=== PATIENT | male | born 1930 | race Caucasian/White ===

== ENCOUNTER 2019-11-25 11:30 | Emergency (ER) | payer OTHER ==
--- NOTE | 2019-11-25 11:43 | PDOC ---
History of Present Illness - General History Source: Patient, Family (Grandson Harlan present at bedside), Pt declined Payroll And Benefits Analyst (Requested grandson provide translation.) Exam Limitations: Language Barrier (Pt is Puerto Rican speaking only.) - History of Present Illness Initial Comments: HPI: 89 y/o male presenting to [place] ER accompanied by grandanita Claros from Dr. Velez's clinic. Pt is complaining of worsening chest pain versus epigastric pain for the past nine days. Associates fever for the past several days. Last used Tylenol this morning. Denies pain radiating to arms, neck, or back. Denies associated SOB, cough, or sneeze. The pt was evaluated at an several weeks ago and tested negative for COVID. However, his was diagnosed with COVID six weeks ago. Grandson reports the two were isolated from each other following her diagnosis. Denies N/V/D, abd pain, dysuria, rashes. Medical Hx: - HTN - BPH Review of Systems: 10 point review of systems completed. All systems negative except as noted above. Physical Examination: Vital signs and nursing notes reviewed. Constitutional- Elderly adult male in no acute distress or obvious discomfort. Found semi-fowlers on hospital bed. Head- Normocephalic. No obvious external signs of trauma. Eyes- Sclerae white. Neck- Supple, trachea is midline. No JVD. Cardiovascular / Chest- Regular rate and regular rhythm. Peripheral pulses- radial pulses full. No pretibial edema. Respiratory- Breathing unlabored. Speaking in multi-word responses without pausing. Equal chest rise and fall. Clear to auscultation bilaterally. No stridor, no wheezing, no rhonchi. Gastrointestinal- Pt endorses discomfort in epigastric region without rebound or guarding. Globally, abdomen is soft and nondistended. Midline abdominal wall hernia that spontaneously reduces. No pulsatile masses. No overlying skin lesions or obvious signs of trauma. Neuro- Alert and oriented. Moving all four extremities spontaneously. No facial asymmetry. Skin- Warm, dry, and intact. Psych- Speech was non-labored, non-pressured. MDM: 89 y/o male presenting with nine days of worsening epigastric vs substernal chest pain w/ fever. Afebrile. Vitals unremarkable for hypotension or tachycardia. Normoxic on room air while at rest. Physical exam as described above. D/D includes but not limited to ACS, bacteria PNA, COVID PNA/viral syndrome, acute gastritis, GERD. CXR remarkable for bilateral patchy infiltrates concerning for COVID-19 infection. 12-lead EKG Interpretation: Sinus rhythm with ventricular rate of 63 BPM. Normal [place] and normal intervals. Normal QRS duration. No significant ST segment elevation or depression. T wave inversions in aVL, V4, V5, and V6. No previous EKGs available for comparison. Lead II Cardiac Rhythm Strip- Sinus rhythm. Grandson requested the pt be discharged AMA, but does not want the pt to be made aware of his current clinical condition. Explained this was not possible. Grandson will discuss with his father. Ordered Pepcid, ASA, SL Nitro, and LR IVFB. Pt reports the pain has gotten a little bit better following the SL nitro. Reviewed lab work. Noted mildly elevated CK-MB with normal troponin. Given the inverted T waves, concerning for possible recent CA without acute infarction. Ordered three hour delta troponin and EKG. Also noted mild hyponatremia and HENRIETTA. Concern for dehydration. Will admit pt for chest pain, abnormal EKG findings, elevated CK-MB, and COVID findings on CXR. After >30 min discussion with pt, pts grandson, pts PCP Dr. Velez (via telephone). Pt has elected to leave this facility against medical advice and proceed directly to [facility] ED for further evaluation. Pt has a family member that works at [facility] as a RN. Todays findings as well as the risks of leaving the hospital were discussed via [employer]phone Payroll And Benefits Analyst Services with [place]ican grain unloader machine # [id number]. The pts grandson was present at bedside and was a 3-rd republican on the call via his own cell phone (number [phone]). Pt was found to be A/Ox4 and of sound mind with intact decision making capacity. He expressed understanding of the risks, and repeated his desire to leave the ED AMA. All questions were answered. ED RN Evelyne was present for the conversation. Pt left the department before delta labs or repeat EKG could be obtained. Pt was provided copies of todays results, including electronic copies of his chest xray. Dr. Velez was made aware of the pts decision. Pt left the department under the care of his grandson HarlanRenard Zendejas M.D., PGY2 Emergency Medicine Resident Please note this patient was evaluated during the COVID-19 crisis with the presidential Reyes Act Declaration and the [place] governor executive order number [id number]. He/she was evaluated and clinical decisions were made relative to healthcare system resources as well as clinical picture during a pandemic crisis situation. <Adryan Zendejas - Last Filed: 11/25/19 14:58> <Olimpia Curiel - Last Filed: 11/25/19 15:01> - General Chief Complaint: Chest Pain Stated Complaint: H/O FEVER, CHEST PAIN Time Seen by Provider: 11/25/19 11:37 Past History <Adryan Zendejas - Last Filed: 11/25/19 14:58> <Olimpia Curiel - Last Filed: 11/25/19 15:01> - Past Medical History Allergies/Adverse Reactions: Allergies Allergy/AdvReac Type Severity Reaction Status Date / Time No Known Allergies Allergy Verified 11/25/19 11:35 Home Medications: Ambulatory Orders Azithromycin [Zithromax 250mg Tablets -] 250 mg PO UTDICT #6 tab 11/25/19 Labetalol HCl [Normodyne -] 200 mg PO DAILY 11/25/19 Olmesartan Medoxomil [Benicar] mg PO DAILY 11/25/19 Tamsulosin HCl [Flomax] 0.4 mg PO DAILY 11/25/19 *Physical Exam - Vital Signs Last Vital Signs Temp Pulse Resp BP Pulse Ox 98 F 61 20 178/72 H 95 11/25/19 11:30 11/25/19 12:55 11/25/19 12:55 11/25/19 12:55 11/25/19 12:55 <Olimpia Curiel - Last Filed: 11/25/19 15:01> ED Treatment Course - LABORATORY CBC & Chemistry Diagram: 11/25/19 11:45 11/25/19 11:45 - RADIOLOGY Radiology Studies Ordered: Category Date Time Status CHEST X-RAY PORTABLE* [RAD] Stat Radiology 11/25/19 11:38 Ordered <Adryan Zendejas - Last Filed: 11/25/19 14:58> - LABORATORY CBC & Chemistry Diagram: 11/25/19 11:45 11/25/19 11:45 - ADDITIONAL ORDERS Additional order review: Laboratory Results 11/25/19 11/25/19 11:45 11:45 Sodium 129 L Potassium 4.8 Chloride 95 L Carbon Dioxide 22 Anion Gap 12 BUN 26.0 H Creatinine 1.9 H Est GFR (CKD-EPI)AfAm 35.69 Est GFR (CKD-EPI)NonAf 30.79 Random Glucose 131 H Calcium 8.4 L Phosphorus 2.7 Magnesium 1.6 L Total Bilirubin 0.6 AST 51 H ALT 37 Alkaline Phosphatase 62 Creatine Kinase 177 Creatine Kinase Index 2.2 CK-MB (CK-2) 3.9 H Troponin I 0.03 Total Protein 6.7 Albumin 3.0 L 11/25/19 11:45 RBC 3.82 L MCV 87.0 MCHC 34.8 RDW 13.0 MPV 7.6 Neutrophils % 72.5 Lymphocytes % 17.5 Monocytes % 9.5 Eosinophils % 0.4 Basophils % 0.1 - Medications Given in the ED: ED Medications Discontinued Medications Generic Name Dose Route Start Last Admin Trade Name Freq PRN Reason Stop Dose Admin Aspirin 324 mg 11/25/19 13:00 11/25/19 13:05 Asa - PO 11/25/19 13:01 324 mg ONCE ONE Administration Famotidine/Sodium Chloride 20 mg in 50 mls @ 100 mls/hr 11/25/19 13:00 11/25/19 13:15 Pepcid 20 Mg Premixed Ivpb - IVPB 11/25/19 13:29 100 mls/hr ONCE ONE Administration Lactated Ringer's 1,000 ml 11/25/19 13:00 11/25/19 13:20 Lactated Ringers Solution IV 11/25/19 13:01 1,000 ml ONCE ONE Administration Magnesium Oxide 800 mg 11/25/19 13:15 11/25/19 13:35 Mag-Ox - PO 11/25/19 13:16 800 mg ONCE ONE Administration <Olimpia Curiel - Last Filed: 11/25/19 15:01> Discharge - Discharge Information Problems reviewed: Yes - Admission No <Adryan Zendejas - Last Filed: 11/25/19 14:58> - Discharge Information Problems reviewed: Yes <Olimpia Curiel - Last Filed: 11/25/19 15:01> - Discharge Information Clinical Impression/Diagnosis: Suspected COVID-19 virus infection, Hyponatremia, HENRIETTA (acute kidney injury), Abnormal finding on EKG Chest pain Qualifiers: Chest pain type: unspecified Qualified Code(s): R07.9 - Chest pain, unspecified Condition: Stable Disposition: AGAINST MEDICAL ADVICE - Additional Discharge Information Prescriptions: Azithromycin [Zithromax 250mg Tablets -] 250 mg PO UTDICT #6 tab - Follow up/Referral Referrals: Sy Velez MD [Primary Care Provider] - - Patient Discharge Instructions Patient Printed Discharge Instructions: DI for Chest Pain, [facility]-Coronavirus Instructions, [facility] COVID-19 Isolation Protocol Additional Instructions: Please see attached instructions, which are in both Pry[place]in[place] and [place]ican. Please go directly to [facility]. Given them this packet so they can review today's results. ------- Discharge instructions for patients against medical advice you are choosing to leave against medical advice (AMA) you have capacity to make medical decisions. you are of sound mind and competent to refuse medical care. you demonstrate a normal mental capacity to make decisions regarding their healthcare. The patient is clinically sober and does not appear to be under the influence of any illicit drugs at this time. you have a diagnosis of suspected coronavirus infection, causing a pneumonia. your EKG was abnormal signifying possible cardiac injury. you are to take azithromycin x 5 days for pneumonia. you have been advised of the risks, in layman terms, of leaving AMA which include, but are not limited to cardiac arrest, heart attack or myocardial infarction, severe infection, blood stream infection, dehydration, worsening bleeding, liver /renal failure, arrhythmia, respiratory failure, delay in diagnosis and management, loss of current lifestyle, loss of functional status, multiorgan failure, coma, severe disability and . Alternatives have been offered - you are given referrals for specialists to see for your presentation. you have been advised that should they change their mind they are welcome to return to this hospital, or any other, at any time. you understand that in no way does an AMA discharge mean that I do not want them to have the best medical care available. To this end, I have provided appropriate prescriptions, referrals, and discharge instructions. you signed AMA paperwork. The above disc ussion was witnessed by another member of staff, TERRY Stubbs Print Language: TURKISH - Post Discharge Activity
[2019-11-25 12:00] VITALS: BMI 28.7
--- NOTE | 2019-11-25 12:19 | PDOC ---
Attending Attestation - Resident Resident Name: Adryan Zendejas - ED Attending Attestation I have performed the following: I have examined & evaluated the patient, The case was reviewed & discussed with the resident, I agree w/resident's findings & plan - HPI HPI: 11/25/19 12:51 89 YOM with h/o BPH and HTN, p/w epigastric and left sided chest pain, x 1 week fever, Tmax 101 yesterday, last dose of tylenol this morning tested neg covid 1 month ago at urgent care +covid 19 in about 1.5 weeks ago. \ History obtained from primarily son, Pt declined Furnishings Conservator (Requested grandson provide translation.) (Pt is Ivorian speaking only.) 11/25/19 12:53 - Physicial Exam PE: 11/25/19 12:17 Agree with the resident's HPI and PE as documented in the electronic medical record. NAD, well appearing, EOMI, PERRL, nl conjunctiva, anicteric; neck supple. lungs clear, no respiratory distress. RRR, abdomen soft nontender. no rebound, guarding. Back nontender. CERVANTES x4, no focal neuro deficits. No peripheral edema. normal color for ethnicity, WWP. 11/25/19 14:46 - Medical Decision Making 11/25/19 12:17 Vital Signs Temp Pulse Resp BP Pulse Ox 98 F 62 23 H 187/79 H 96 11/25/19 11:30 11/25/19 11:30 11/25/19 11:30 11/25/19 11:30 11/25/19 11:30 vs reviewed, hypertensive no fever, no systemic findings normal HR sats 96 % on RA does desat down to 94% on monitor with movement. 11/25/19 12:54 Differential diagnosis includes viral syndrome, pleurisy, covid 19 infection, pneumonia,, pleural effusion, pulmonary edema, pneumonia. ACS, arrhythmia, anemia, electrolyte/metabolic derangements, bacteremia. highly suspicious for covid 19 infection Covid 19 testing indicated given his risk of exposures and clinical history will anticipate admission CBC, CMP, lytes, lactic, crp, ldh, trop, inflammatory and prognostic markers, sent - normal cbc. +mild hyponatremia, HENRIETTA 1.9, no known prior. Mg low, repleted - trop is negativ, reassuring EKG is with ischemic findings such as TWI in lateral leads Interpreted by ED Physician: CXR (1 view): bilateral lower lobe infiltrates, bones appear intact and structures normal alignment, cardiac silhouette within normal limits. no free air under diaphragm, no pneumothorax. ED interventions: analgesia, nitro with some relief, ASA, as well as Mg repletion, pepcid, IVF hydration pt's family, grandson at bedside in PPE- instructed this could be ACS/cov id 19 inefction with some mild metabolic derangements - who wishes to bring him home, despite being explained this is suspected covid 19 and warrants admission due to some abnormalities, EKG with ischemic findings. 11/25/19 14:[address] Velez, who states pt can be discharged with followup outpatient, has O2 and nitro, DNR/DNI active. however. given patients' new EKG changes/ischemic findings, chest pain/abdominal pain, covid 19 infection suspected, pt should get observation tele for close m onitoring information presented to patient in his [place] tribe language and his grandson at bedside. they wish if anything gets worse to go to [facility] in [place] where they reside. The patient has requested to leave the ED against medical advice. The patient reason(s) for leaving include, but are not limited to, the following: wishing to be at home. Discussion at the bedside with patient (and family) via [employer] interpretation in Ivorian. Pt has capacity to make medical decisions. Discussed indications for treatment and admission, management plan, risks and benefits. I believe this patient is of sound mind and competent to refuse medical care. The patient is responding and asking questions appropriately. The patient is oriented to person, place and time. There is no evidence of psychosis, delusions/ hallucinations, suicidal/homicidal ideation, altered mental status or intoxication. The patient demonstrates a normal mental capacity to make decisions regarding their healthcare. The patient is clinically sober and does not appear to be under the influence of any illicit drugs at this time. Patient understands the nature of the condition and treatment plan, advised of the potential risks, in layman terms, of leaving AMA which include, but are not limited to: cardiopulmonary arrest, severe infection, blood stream infection, dehydration, bleeding, multiorgan failure including liver, kidney, brain, lung and heart, myocardial infarction/heart attack, arrhythmia, stroke, head bleed, seizure, carotid stenosis/aneurysm/dissection, respiratory failure, delay in diagnosis and management, loss of current lifestyle, loss of functional status, coma, severe disability and . Alternatives have been offered - the patient remains steadfast in their wish to leave. The patient has been advised that should they change their mind they are welcome to return to this hospital, or any other, at any time - call 911 immediately if severe life threatening symptoms or concerns occur. The patient understands that in no way does an AMA discharge mean that I do not want them to have the best medical care available. To this end, I have provided appropriate prescriptions, referrals, and discharge instructions. Patient will be treated with Azithromycin x 5 days and close followup with primary doctor and/or specialists as provided/discussed for clinical reevaluation. Patient verbalized understanding of information provided, questions answered. The patient did sign AMA paperwork. The above discussion was witnessed by another member of staff, TERRY Stubbs 11/25/19 14:06 11/25/19 14:09 11/25/19 14:09 11/25/19 14:47 Heart Score/ECG Review #1 ECG reviewed & interpreted by me at: 11:50 General ECG Interpretation: Sinus Rhythm, Normal Rate, Normal Intervals Compared to previous ECG there are: Previous ECG unavail 11/25/19 12:56 EKG normal sinus rhythm 63 bpm, no interval abnormalities, narrow QRS, ST segments and morphology normal. +TWI in latera leads I, AVL, V4-6. no prior Discharge - Discharge Information Problems reviewed: Yes Clinical Impression/Diagnosis: Suspected COVID-19 virus infection, Hyponatremia, HENRIETTA (acute kidney injury), Chest pain, Abnormal finding on EKG Condition: Stable Disposition: AGAINST MEDICAL ADVICE - Additional Discharge Information Prescriptions: Azithromycin [Zithromax 250mg Tablets -] 250 mg PO UTDICT #6 tab - Follow up/Referral Referrals: Sy Velez MD [Primary Care Provider] - - Patient Discharge Instructions Patient Printed Discharge Instructions: DI for Chest Pain, [facility]-Coronavirus Instructions, [facility] COVID-19 Isolation Protocol Additional Instructions: Please see attached instructions, which are in both Mongolian and Ivorian. Please go directly to [facility]. Given them this packet so they can review today's results. ------- Discharge instructions for patients against medical advice you are choosing to leave against medical advice (AMA) you have capacity to make medical decisions. you are of sound mind and competent to refuse medical care. you demonstrate a normal mental capacity to make decisions regarding their healthcare. The patient is clinically sober and does not appear to be under the influence of any illicit drugs at this time. you have a diagnosis of suspected coronavirus infection, causing a pneumonia. your EKG was abnormal signifying possible cardiac injury. you are to take azithromycin x 5 days for pneumonia. you have been advised of the risks, in layman terms, of leaving AMA which include, but are not limited to cardiac arrest, heart attack or myocardial infarction, severe infection, blood stream infection, dehydration, worsening bleeding, liver /renal failure, arrhythmia, respiratory failure, delay in diagnosis and management, loss of current lifestyle, loss of functional status, multiorgan failure, coma, severe disability and . Alternatives have been offered - you are given referrals for specialists to see for your presentation. you have been advised that should they change their mind they are welcome to return to this hospital, or any other, at any time. you understand that in no way does an AMA discharge mean that I do not want them to have the best medical care available. To this end, I have provided appropriate prescriptions, referrals, and discharge instructions. you signed AMA paperwork. The above discussion was witnessed by another member of staff, TERRY Stubbs Print Language: JAMAICAN - Post Discharge Activity
[2019-11-25 12:26] LABS: BASO % 0.1 % (0-2.0); EOS % 0.4 % (0-4.5); HEMATOCRIT 33.2 % (35.4-49); HEMOGLOBIN 11.5 GM/dl (11.7-16.9); LYMPH % 17.5 % (8-40); MCH 30.2 pg (25.7-33.7); MCHC 34.8 g/dl (32.0-35.9); MEAN PLT VOLUME 7.6 fl (7.5-11.1); MONO % 9.5 % (3.8-10.2); NEUT % 72.5 % (42.8-82.8); PLATELET COUNT 249 K/MM3 (134-434); RBC 3.82 M/mm3 (4.00-5.60); WHITE BLOOD COUNT 3.9 K/mm3 (4.0-10.8)
[2019-11-25 12:35] LABS: BILIRUBIN,TOTAL 0.6 mg/dl (0.2-1); CALCIUM 8.4 mg/dl (8.5-10); CREATININE 1.9 mg/dl (0.55-1.3); MAGNESIUM 1.6 mg/dL (1.8-2.4); PHOSPHOROUS 2.7 mg/dl (2.5-4.9); POTASSIUM 4.8 mmol/L (3.5-5.1); TOT PROT 6.7 g/dl (6.4-8.2)
[2019-11-25] MEDS ORDERED: NITROGLYCERIN SUBLINGUAL 1/150 0.4 MG TAB SL PRN (13:00)
[2019-11-25] MEDS ORDERED: ASPIRIN 81 MG CHEWABLE TABLETS PO ONE (13:00)
[2019-11-25] MEDS ORDERED: LACTATED RINGERS SOLUTION 1000 ML INFUS.BAG IV ONE (13:00)
[2019-11-25] MEDS ORDERED: FAMOTIDINE 20 MG/50 ML IVPB 20 MG/50 ML MG IVPB ONE ×2 (13:00→13:02)
[2019-11-25] MEDS ORDERED: NITROGLYCERIN SUBLINGUAL 1/150 0.4 MG TAB ONE (13:02)
[2019-11-25] MEDS ORDERED: ASPIRIN 81 MG CHEWABLE TABLETS ONE ×2 (13:02→13:03)
[2019-11-25] MEDS ORDERED: MAGNESIUM OXIDE 400 MG TABLET (FP) PO ONE (13:15)
[2019-11-25 15:03] VITALS: BP 137/76; TEMP 97.8
[2019-11-25 15:04] VITALS: PULSE 69
--- NOTE | 2019-11-26 10:34 | EKG ---
Test Reason : Blood Pressure : / mmHG Vent. Rate : 063 BPM Atrial Rate : 063 BPM P-R Int : 178 ms QRS Dur : 082 ms QT Int : 428 ms P-R-T Axes : 031 -05 132 degrees QTc Int : 437 ms NORMAL SINUS RHYTHM ABNORMAL ECG Confirmed by MD CLINT, KEESHA ([id number]) on 11/26/2019 10:33:46 AM Referred By: BLANQUITA HARLEY Confirmed By:KEESHA JARAMILLO MD
== END 2019-11-25 13:40 | disposition left against medical advice (07) ==
LOC: FER 11:30
PROC: 3E033GC Introduction of Other Therapeutic Substance into Peripheral Vein, Percutaneous Approach (ICD-10-PCS; principal; 2019-11-25)
DX: R07.9 Chest pain, unspecified (principal); N17.9 Acute kidney failure, unspecified; E87.1 Hypo-osmolality and hyponatremia; R94.31 Abnormal electrocardiogram [ECG] [EKG]; Z20.828 Contact with and (suspected) exposure to other viral communicable diseases
CPT/HCPCS: 36415; 71045-TC-FY; 80053; 82550; 82553; 83735; 84100; 84484; 85025; 93005; 94640; 99285-25